=== PATIENT | male | born 1985 | race Hispanic/Latino ===

== ENCOUNTER 2022-10-09 13:49 | Emergency (ER) | payer SELFPAY ==
[2022-10-09] MEDS ORDERED: Ibuprofen 800 MG TAB ONE (14:03)
[2022-10-09] MEDS ORDERED: Boostrix 0.5 ML (Tdap) VIAL (>/=7 yrs of age) ONE (14:11)
== END 2022-10-09 15:17 ==
LOC: ERS 13:49
DX: S02.2XXA Fracture of nasal bones, initial encounter for closed fracture (principal); Y04.0XXA Assault by unarmed brawl or fight, initial encounter
CPT/HCPCS: 70450; 70486; 90471; 90715